=== PATIENT | female | born 1945 | race Caucasian/White ===

== ENCOUNTER 2016-07-15 18:18 | Observation (INO) | payer OTHER ==
--- NOTE | ~2016-07-15 | HP ---
History And Physical [place] [address] [place]. [address] NAME: BHAVIN HURT] : 47 STATUS : ADM Antolin PAT#: [id number] AGE: 70 ADM/REG DATE : 07/15/16 MR#: [id number] REPORT SERV DATE: 07/16/16 DICTATED BY: LUDIVINA BRAGA DATE: 07/16/16 REPORT STATUS : Draft TRANSCRIBED BY: MODL DATE: 07/16/16 DATE OF ADMISSION: 07/15/2016 COLOR CONSULTANT: Sammy Onofre M.D. CHIEF COMPLAINT: Chest pressure similar to previous. HISTORY OF PRESENT ILLNESS: Very pleasant, 70-year-old, white female with known history of CAD, status post reported TN in 2007 with two VIKAS to mid RCA at that time by Dr. Cecilio Hernandes. 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 The patient states that she was sitting, talking to a friend, 07/15/2016 around 1430 hours and developed some right-sided chest discomfort above her right breast that radiated to her mid chest and her jaw. She describes it as a pressure, states it is somewhat similar to her event in 2008. She denies any shortness of breath, nausea, diaphoresis, dizziness, or belching. At its most intense, her chest pain is rated an 8/10. At time of interview in the OU, she is pain free. She states the episode lasted approximately 30 minutes in duration. There was no exertional component described. She denies any argumentative stressful or confrontational events as well. The patient confirms personal history of one heart attack in 2007, also describes history of right lower extremity DVT and probable PE, now on Eliquis 2.5 twice daily. Denies history of stroke. The patient recently and currently being treated for an upper respiratory infection. Denies palpitations. No syncopal episodes. Denies PND or orthopnea. PAST MEDICAL HISTORY: 1. CAD. a. Self reports [place] x1. b. Two VIKAS to mid RCA with PTCA 06/2007 with subsequent catheterization 01/2008 revealing a patent stent to the RCA with 20% lesion in the left main, proximal LAD, and mid circumflex. 2. History of PE and DVT, on Eliquis 2.5 twice daily. 3. Hypertension. 4. Dyslipidemia. 5. Denies diabetes. 6. RLS. 7. Depression. 8. Positive family history for early CAD. 9. Former tobacco abuse. SURGICAL HISTORY: 1. Cataract surgery. 2. Right foot repair. 3. Right wrist surgery. 4. Hysterectomy. 5. Tonsillectomy. History And Physical [address] [address] NAME: BHAVIN HURT] : 47 STATUS : ADM Antolin PAT#: [id number] AGE: 70 ADM/REG DATE : 07/15/16 MR#: [id number] REPORT SERV DATE: 07/16/16 DICTATED BY: LUDIVINA BRAGA DATE: 07/16/16 REPORT STATUS : Draft TRANSCRIBED BY: JORDON DATE: 07/16/16 SOCIAL HISTORY: She is with three children. Retired from multiple occupations. Does not have an exercise routine. Quit smoking in 2003. Denies alcohol or illicit's. FAMILY HISTORY: Father's medical history unknown. Mother at the age of 72 of a pulmonary embolus. Sister with heart disease, specifics unknown. Brother of a heart attack in his 40s, but had used alcohol and drugs. REVIEW OF SYSTEMS: A 14-point review of systems performed, significant for HPI including snores per report with no formal sleep study. Otherwise, complete review of systems obtained and negative. ALLERGIES: PENICILLIN, NAUSEA, VOMITING. HOME MEDICATIONS: Albuterol twice daily p.r.n.; Eliquis 2.5 mg twice daily; aspirin 81 mg daily; atorvastatin 40 mg daily; baclofen 10 mg twice daily; doxycycline 100 mg twice daily for 10 days; Prozac 40 mg daily; Flonase spray p.r.n.; gabapentin 100 mg twice daily; metoprolol tartrate 25 mg twice daily; Ditropan 5 mg daily; Mirapex 0.25 mg twice daily; cough syrup p.r.n.; stool softener p.r.n. PHYSICAL EXAMINATION: VITAL SIGNS: Blood pressure 118/58, pulse 60, respirations 16, temperature 98.3, O2 saturation 92% on room air, height 5 feet 7 inches, weight 230 pounds, BMI 36. GENERAL: Cooperative, in no apparent distress. HEENT: Pupils 2 mm, sclera nonicteric. Nares patent. Moist mucous membranes. No xanthelasma. NECK: Trachea midline, no thyromegaly. No JVD. No bruits. LYMPH: No cervical lymphadenopathy. No supraclavicular lymphadenopathy. RESPIRATORY: Unlabored respirations. Breath sounds clear bilaterally to posterior auscultation. No wheezes or rhonchi. CARDIOVASCULAR: Regular rate. No murmur, rub or gallop appreciated. Extremities without edema. Pulses 2+ bilaterally. ABDOMEN: Obese, soft, nontender, nondistended, normal bowel sounds auscultated throughout. No organomegaly. SKIN: Warm, dry extremities. No pallor, or cyanosis. PSYCHIATRIC: Appropriate affect. Alert, oriented x3. LABORATORY DATA: Troponin less than 0.02 x3. Potassium 3.9, BUN 11, creatinine 0.90, glucose 95, magnesium 2.1. BNP 193.3. WBC 7.1, hemoglobin 14.3, hematocrit 42.0, platelet count 294,000. D-dimer 0.31. EKG, sinus bradycardia. Echo, 09/2012: EF 60% to 65%. MPI, 2014: Lul stage 2, no ischemia. Suboptimal increase in heart rate. ASSESSMENT AND PLAN: 1. Chest pain in patient with multiple risk factors. The patient has been observed in the CPOU overnight to rule out myocardial infarction with serial enzymes and serial EKGs History And Physical [address] [address] NAME: BHAVIN HURT] : 47 STATUS : ADM Antolin PAT#: [id number] AGE: 70 ADM/REG DATE : 07/15/16 MR#: [id number] REPORT SERV DATE: 07/16/16 DICTATED BY: LUDIVINA BRAGA DATE: 07/16/16 REPORT STATUS : Draft TRANSCRIBED BY: MODL DATE: 07/16/16 and held n.p.o. We will proceed with MPI today. The patient will be discharged home if low risk, no ischemia. If anything suggestive of ischemia, Cardiology referral will be initiated. Otherwise, the patient will be asked to follow up with her PCP and Dr. Onofre as appropriate. 2. Coronary artery disease. Continue home medications. 3. Hypertension. Monitor blood pressure and continue home medications. 4. Dyslipidemia. Continue statin. 5. History of pulmonary embolism and deep vein thrombosis. Currently on Eliquis 2.5 twice daily. Would recommend increasing Eliquis to 5 mg twice daily for appropriate coverage. The patient denies any history of GI bleed or complications on Eliquis. Prescription will be provided at discharge. 6. No nitroglycerin available. We will provide nitroglycerin 0.4 mg sublingual p.r.n. at discharge. Education and use in storage discussed with patient at bedside. REINA/JORDON Ludivina Braga, MSN, TRUCK DRIVER SUPERVISOR- / [id number] CC: MIAH Ridley M.D. Gordon Graham, M.D.
--- NOTE | ~2016-07-15 | DS ---
Discharge Summary [facility] [address] [place]. [address] NAME: BHAVIN HURT : 47 STATUS : DIS Antolin PAT#: [id number] AGE: 70 ADM/REG DATE : 07/15/16 MR#: [id number] REPORT SERV DATE: 07/29/16 DICTATED BY: EMPERATRIZ GAYTAN DATE: 07/29/16 REPORT STATUS : Draft TRANSCRIBED BY: MODQuita DATE: 07/29/16 ADMISSION DATE: 07/15/2016 DISCHARGE DATE: 07/18/2016 DISCHARGE DIAGNOSES: Included: 1. Chest pain, status post abnormal nuclear stress test. 2. Coronary artery disease. 3. Hypertension. 4. Hyperlipidemia. 5. History of pulmonary embolism and deep venous thrombosis. 6. Depression. 7. Restless legs syndrome. CONSULTANTS: None. PROCEDURES: 1. Nuclear stress test on 07/16/2016 indicating overall intermediate risk secondary to imaging demonstrating possible anterior ischemia. Post infusion LVEF 54%. 2. Cardiac catheterization on 07/18/2016 with PCI. 90% stenosis of the proximal right coronary artery, in-stent restenosis, reduced to 0% using one drug-eluting stent 3.5 x 20 [employer] PROMUS Premier. Other coronary arteries with moderate calcifications. Minor irregularities in the LAD, left circumflex and normal left main. This was performed by Dr. Andrés Velez. IMAGING: Include a chest x-ray on 07/15/2016 showing mild bibasilar atelectasis with no acute cardiopulmonary abnormalities identified. LABS: On day of discharge, sodium 141, potassium 4.0, BUN 12, creatinine 0.9. White blood count 6.8, hemoglobin 14.6, hematocrit 43.5. Troponin during admission was less than 0.02 x3. BRIEF HOSPITAL COURSE: This is a 70-year-old female with prior history of coronary artery disease and two prior stents to the RCA with self-reported MT, who presented to our chest pain observation unit on the day of admission with complaints of chest pain. Please see history of present illness on the H and P for further details. The patient's troponins were normal and she was set up for a nuclear stress test to occur on the . This did show some abnormalities as indicated above. The patient was kept over the weekend for cardiac catheterization to occur on Monday. She was placed on a heparin drip when her Eliquis was discontinued given her history of DVT and PE. This was discontinued when she went for cardiac catheterization. The patient went for cardiac catheterization early Monday morning and received a drug-eluting stent as indicated above and met same-day discharge criteria and was discharged later that day. I saw her prior to discharge around 11 o'clock in the morning and she had no complaints. Radial band was in place with no evidence of bleeding or hematoma. I instructed her on the p.r.n. use of nitroglycerin for recurrent chest pain and to come to the emergency department for any chest pain, unresolved after three doses. I also reviewed with her activity restrictions following catheterization which was also Discharge Summary [address] [place]. [address] NAME: BHAVIN HURT : 47 STATUS : DIS Antolin PAT#: [id number] AGE: 70 ADM/REG DATE : 07/15/16 MR#: [id number] REPORT SERV DATE: 07/29/16 DICTATED BY: EMPERATRIZ GAYTAN DATE: 07/29/16 REPORT STATUS : Draft TRANSCRIBED BY: JORDON DATE: 07/29/16 reviewed by the nursing staff. The patient will be on aspirin, Plavix, and Eliquis for 30 days given her history of DVT and PE as well as new stent. I discussed with Dr. Velez, and instructed the patient that we will stop aspirin after one months' time and then continue only on Plavix and Eliquis. She voiced understanding. DISPOSITION: Discharged home with family member. DISCHARGE MEDICATIONS: Please see discharge MAR. ACTIVITY: Post radial catheterization activity restrictions. DIET: Cardiac diet. FOLLOWUP: Follow up in three-four weeks with Dr. Sammy Onofre who is her milk runner. JUNI/JORDON Emperatriz Gaytan NP / [id number] CC: MIAH Ridley M.D. Gordon Graham, M.D.
[2016-07-15 16:18] LABS: BASOPHILS 0.6 %; BASOPHILS ABSOLUTE 0.04 10/3/uL (0.0-0.16); EOSINOPHILS 3.1 %; EOSINOPHILS ABSOLUTE 0.22 10/3/uL (0.0-0.53); ER CBC TAT 0 Hrs 03 Mins; HEMOGLOBIN 14.3 g/dL (12.0-16.0); IMMATURE GRANULOCYTES 0.6 %; IMMATURE GRANULOCYTES ABSOLUTE 0.04 10/3/uL (0.0-0.11); LYMPHOCYTES 28.5 %; LYMPHOCYTES ABSOLUTE 2.03 10/3/uL (0.67-4.30); MEAN CORPUSCULAR HEMOGLOB 29.9 pg (26.0-34.0); MEAN CORPUSCULAR VOLUME 87.9 fL (80-100); MONOCYTES 10.5 %; MONOCYTES ABSOLUTE 0.75 10/3/uL (0.21-1.20); NEUTROPHILS 56.7 %; NEUTROPHILS ABSOLUTE 4.04 10/3/uL (2.02-8.40); PLATELET COUNT 294 10/3/uL (150-400); RBC DISTRIBUTION WIDTH 13.1 % (12.0-16.0); RED CELL COUNT 4.78 10/6/uL (4.0-5.6); WHITE BLOOD CELLS 7.1 10/3/uL (4.5-10.5)
[2016-07-15 16:19] LABS: MANUAL DIFF NO %
[2016-07-15 16:26] LABS: INTERNATIONAL NORMAL RATI 1.2 UNITS (-); PROTIME (NOT ORD) 15.2 SEC (12.0-14.5)
[2016-07-15 16:27] LABS: PARTIAL THROMBO TIME 31.3 SEC (22.5-37.2)
[2016-07-15 16:37] LABS: BUN (BLOOD UREA NITROGEN) 11 MG/DL (6-23); CALCIUM, SERUM 8.8 MG/DL (8.5-10.4); CHEST PAIN PROFILE TAT 0 Hrs 22 Mins; CHLORIDE, SERUM 107 MMOL/L (96-112); CO2 (CARBON DIOXIDE) 30 MMOL/L (24-34); GFR AFRICAN AMERICAN 76 ML/MIN (>=60); GFR NON AFRICAN AMERICAN 65 ML/MIN (>=60); GLUCOSE, SERUM 95 MG/DL (60-99); POTASSIUM, SERUM 3.9 MMOL/L (3.5-5.3); SODIUM, SERUM 143 MMOL/L (135-148); TROPONIN I <0.02 NG/ML (<0.05)
[2016-07-15 18:04] LABS: D-DIMER QUANTITATIVE 0.31 ug/mLFEU (< 0.50)
[~2016-07-15 18:18] MED LIST: ASAB PO; CALTRA600D PO; CELEXA40 MG PO; COUGH SYRUP OTC PO; COUMADIN3 MG PO; DITRO5 PO; DSS PO; ELIQUIS 5 MG TAB5 MG PO; FLAG500TAB PO; FLEX PO; FLONASE NAS; FLORASTOR250 MG PO; LEVAQUIN750 MG PO; LIOR10 PO; LIPITOR40 PO; LOP25 PO; LOVENOX; MIRAPEX250 PO; MIRAPEX5 PO; MONODOX100 MG PO; MULTI-VIT HP OR; NEUR100 PO; NORCO1 TA1 PO; PCET PO; PRAVAC PO; PROAIR HFA INH; PROZAC40 MG PO; SINGULAIR1 PO; STOOL SOFTEN100 MG PO; STOOL SOFTENER OTC PO; T PO; VITAMIN B-121000 MC1 SL; VITAMIN B-122500 MCG SL; XARELTO20 MG PO; ZYRTEC ALLGY10 MG PO; [UNRECOGNIZED DRUG - REMARK]
[2016-07-18 04:55] LABS: BASOPHILS 0.4 %; BASOPHILS ABSOLUTE 0.03 10/3/uL (0.0-0.16); EOSINOPHILS 3.4 %; EOSINOPHILS ABSOLUTE 0.23 10/3/uL (0.0-0.53); HEMATOCRIT 43.5 % (36.0-48.0); HEMOGLOBIN 14.6 g/dL (12.0-16.0); IMMATURE GRANULOCYTES 0.4 %; IMMATURE GRANULOCYTES ABSOLUTE 0.03 10/3/uL (0.0-0.11); LYMPHOCYTES 35.9 %; LYMPHOCYTES ABSOLUTE 2.43 10/3/uL (0.67-4.30); MEAN CORPUS HGB CONC 33.6 g/dL (32.0-36.0); MEAN CORPUSCULAR HEMOGLOB 29.9 pg (26.0-34.0); MEAN CORPUSCULAR VOLUME 89.1 fL (80-100); MEAN PLATELET VOLUME 10.3 fL (9.2-13.0); MONOCYTES 9.7 %; MONOCYTES ABSOLUTE 0.66 10/3/uL (0.21-1.20); NEUTROPHILS 50.2 %; NEUTROPHILS ABSOLUTE 3.39 10/3/uL (2.02-8.40); PLATELET COUNT 284 10/3/uL (150-400); RBC DISTRIBUTION WIDTH 13.4 % (12.0-16.0); RED CELL COUNT 4.88 10/6/uL (4.0-5.6); WHITE BLOOD CELLS 6.8 10/3/uL (4.5-10.5)
[2016-07-18 05:02] LABS: INTERNATIONAL NORMAL RATI 1.1 UNITS (-)
[2016-07-18 05:10] LABS: PARTIAL THROMBO TIME 144.9 SEC (22.5-37.2)
[2016-07-18 05:18] LABS: ALBUMIN 3.6 G/DL (3.5-5.0); BUN (BLOOD UREA NITROGEN) 12 MG/DL (6-23); CALCIUM, SERUM 8.7 MG/DL (8.5-10.4); CHLORIDE, SERUM 105 MMOL/L (96-112); CO2 (CARBON DIOXIDE) 28 MMOL/L (24-34); CREATININE 0.91 MG/DL (0.55-1.02); GFR AFRICAN AMERICAN 75 ML/MIN (>=60); GFR NON AFRICAN AMERICAN 64 ML/MIN (>=60); HDL CHOLESTEROL 66 MG/DL (> 49); SGOT(AST) 13 U/L (5-40); SGPT(ALT) 17 U/L (5-65); SODIUM, SERUM 141 MMOL/L (135-148); TOTAL BILIRUBIN 0.4 MG/DL (0-1.2); TRIGLYCERIDE 119 MG/DL (< 150)
[2016-07-18 05:19] LABS: A/G RATIO 0.9 (0.7-1.9); ALKALINE PHOSPHATASE 108 U/L (45-117); CHOL/HDL RATIO(NOT ORDER) 2.6 (0-5); CHOLESTEROL 173 MG/DL (< 200); GLOBULIN 3.8 G/DL (2.5-4.1); GLUCOSE, SERUM 117 MG/DL (60-99); LDL CHOLESTEROL 84 MG/DL (< 130); NON-HDL CHOLESTEROL 107 MG/DL (< 160); TOTAL PROTEIN 7.4 G/DL (6.0-8.5)
[2016-07-18 05:22] LABS: MANUAL DIFF NO %
[2016-07-18] MEDS ORDERED: IMDUR30 PO (16:06)
[2016-07-18] MEDS ORDERED: PLAVIX PO (16:07)
[2016-07-18] MEDS ORDERED: NITROSTAT0.4 MG SL (16:07)
== END 2016-07-18 17:19 | disposition home or self-care (01) ==
LOC: ER 18:18 → CDU1 20:59 → CDU2 21:08 → SSU1 07-18 10:05
PROVIDERS: Clinical Nurse Specialist; Emergency Medicine; Nurse Practitioner
DX: I25.110 Atherosclerotic heart disease of native coronary artery with unstable angina pectoris (principal); I10 Essential (primary) hypertension; E78.5 Hyperlipidemia, unspecified; G25.81 Restless legs syndrome; F32.9 Major depressive disorder, single episode, unspecified; Z82.49 Family history of ischemic heart disease and other diseases of the circulatory system; Z87.891 Personal history of nicotine dependence; Z90.710 Acquired absence of both cervix and uterus; Z98.890 Other specified postprocedural states; Z86.711 Personal history of pulmonary embolism; Z86.718 Personal history of other venous thrombosis and embolism; Z90.89 Acquired absence of other organs; Z88.0 Allergy status to penicillin; Z79.82 Long term (current) use of aspirin; Z79.2 Long term (current) use of antibiotics; Z79.899 Other long term (current) drug therapy
CPT/HCPCS: 71020; 78452; 80048; 80053; 80061; 83735; 83880; 84484; 85025; 85347; 85379; 85610; 85730; 93005; 93017; 93458; 96372; 99152; 99153; 99285; A9270-GY; A9502; C1725; C1769; C1874; C1887; C1894; C9600; G0378; J0153; J2250; J3010; Q9967

== ENCOUNTER 2016-08-08 04:52 | Observation (INO) | payer OTHER ==
--- NOTE | ~2016-08-08 | HP ---
History And Physical [place] [id number] [place]. [address] NAME: BHAVIN HURT : 47 STATUS : ADM Antolin PAT#: [id number] AGE: 70 ADM/REG DATE : 08/08/16 MR#: [id number] REPORT SERV DATE: 08/08/16 DICTATED BY: EMPERATRIZ GAYTAN DATE: 08/08/16 REPORT STATUS : Draft TRANSCRIBED BY: MODL DATE: 08/08/16 DATE OF ADMISSION: 08/08/2016 PRIMARY INDUSTRIAL SAFETY ENGINEER: Dr. Sammy Onofre. CHIEF COMPLAINT: Chest pain. HISTORY OF PRESENT ILLNESS: This is a 70-year-old female who was just discharged on 07/18/2016 following an abnormal nuclear stress test with placement of a drug-eluting stent to an intrastent restenosis in the right coronary artery on 07/18/2016. She had been doing fairly well at home, although she does report more fatigue and weakness since her stent. She saw her primary care physician who decreased her metoprolol when her recorded heart rate showed a heart rate in the 40s to 50s along with the complaints of fatigue and weakness. Last night around 11:30, she developed some fairly significant right-sided chest pain with radiation to the left side of her chest and up to both sides of her neck, rated 8/10 in severity and occurring at rest. She took one nitroglycerin at home, which seemed to help a little, but because the pain was stronger than her prior chest pain in June, she came to our emergency department for further evaluation. She was given full-dose aspirin and admitted to our chest pain observation unit. Troponins have been negative and EKG showed no indication of ischemia. The patient states some residual "pressure" in the chest that has not fully dissipated. The patient states compliance with all of her medications. She is currently on triple anticoagulation given her history of pulmonary embolism and DVT. Denies any increase in lower extremity edema. Denies any recent PND, orthopnea, or significant shortness of breath. She denies any bloody or dark-colored stools. She states compliance with her medications. She does report occasional palpitations occurring less frequently than once a week, described as heart racing with some mild dizziness. No recent fever, cough, or chills. MEDICAL HISTORY: 1. Coronary artery disease status post drug-eluting stent to an intrastent restenosis in the proximal RCA on 07/18/2016. This is a 3.5 x 20 [employer] PROMUS drug- eluting stent. There are minor irregularities in the LAD and left circumflex. Prior RCA stents in 2007. 2. History of PE and DVT, on chronic anticoagulation with Eliquis. 3. Hypertension. 4. Dyslipidemia. 5. Restless legs syndrome. 6. Depression. SURGICAL HISTORY: 1. Cataract surgery. 2. Right foot repair. 3. Right wrist surgery. 4. Hysterectomy. History And Physical [address] [address] NAME: BHAVIN HURT : 46 STATUS : ADM Antolin PAT#: [id number] AGE: 70 ADM/REG DATE : 08/08/16 MR#: [id number] REPORT SERV DATE: 08/08/16 DICTATED BY: EMPERATRIZ GAYTAN DATE: 08/08/16 REPORT STATUS : Draft TRANSCRIBED BY: JORDON DATE: 08/08/16 5. Tonsillectomy. SOCIAL HISTORY: The patient is a with three children, daughter at bedside. Retired from multiple occupations. Quit smoking in 2003. Denies alcohol or illicit drug use. FAMILY HISTORY: Father's medical history is unknown. Mother at age 72 of pulmonary embolus. Sister with heart disease, specifics unknown. Brother of a heart attack in his 40s. REVIEW OF SYSTEMS: Negative except as indicated above. PHYSICAL EXAMINATION: VITAL SIGNS: Blood pressure 128/62, heart rate 50s to 60s, temperature 98.1, pulse oximetry 96% room air. BMI 35.7. GENERAL: Well developed, well nourished, in no acute distress HEENT: Anicteric. Normal EOM. Head normocephalic. PERRLA, no xanthelasma. NECK: Supple. No JVD. Carotids normal without bruits. LUNGS: Clear to auscultation bilaterally anterior and posterior. Respirations even and unlabored. CARDIAC: S1, S2 regular rate and rhythm. No murmurs, rubs, or gallops. No chest wall tenderness. ABDOMEN: Normal bowel sounds. Soft and nontender to palpation. No masses or organomegaly. EXTREMITIES: 1+ edema to the bilateral lower extremities. Normal distal pulses. No calf tenderness. No cyanosis or clubbing. SKIN: Warm and dry. Normal turgor. No pallor or cyanosis. MUSCULOSKELETAL: Moving all extremities x4. Normal muscle strength. NEURO/PSYCH: Alert and oriented with appropriate affect. LABORATORY DATA: White blood count 9.5, hemoglobin 14.3, hematocrit 43.1. Sodium 142, potassium 4.0, BUN 20, creatinine 1.1. Troponin less than 0.02 x2. IMAGING: Chest x-ray shows no acute cardiopulmonary processes. EKGs interpreted by myself indicate sinus bradycardia and normal sinus rhythm with no ischemic changes. ASSESSMENT AND PLAN: 1. Atypical chest pain in this 70-year-old female with history of coronary artery disease and recent RCA stent on 07/18/2016. The patient has been observed overnight in the chest pain observation unit and is negative for acute coronary syndrome. The patient has also been seen by Dr. Du. There is no evidence of any acute intrastent restenosis at this time on blood work or EKG. I have reinforced with the patient and her daughter the p.r.n. use of nitroglycerin for chest pain to take up to 3 or 5 minutes apart. If this does not relieve her chest pain, she is to report to the emergency department. The patient states understanding. At this time, we will increase her medical management by increasing her Imdur and arrange followup which is already in place with Dr. Onofre on 08/30/2016. I have also instructed the patient and her daughter that if the patient has any exertional chest pains that are not relieved History And Physical [address] [address] NAME: BHAVIN HURT : 47 STATUS : ADM Antolin PAT#: [id number] AGE: 70 ADM/REG DATE : 08/08/16 MR#: [id number] REPORT SERV DATE: 08/08/16 DICTATED BY: EMPERATRIZ GAYTAN DATE: 08/08/16 REPORT STATUS : Draft TRANSCRIBED BY: JORDON DATE: 08/08/16 with nitroglycerin and/or rest, they are to contact her physician. 2. Coronary artery disease with recent stent. Plan as above. The patient is currently on triple anticoagulation given her history of pulmonary embolism and deep vein thrombosis. She is to stop her aspirin on 08/17/2016 and then to continue her Plavix and Eliquis. 3. History of pulmonary embolism and deep vein thrombosis with no evidence of deep vein thrombosis on exam nor any shortness of breath acutely. The patient is compliant with Eliquis therapy. 4. Hypertension. Blood pressure is controlled. She takes her blood pressure once daily and records it and I have reviewed these logs and they seem to be adequate. Recent adjustment in her beta-ajith by her primary care physician. I agree with this. 5. Mixed hyperlipidemia, on high-intensity statin therapy. Will continue. DBT/MODL Emperatriz Gaytan NP / [id number] CC: Ludivina Garcia, MSN, PUMPING PLANT OPERATOR-BC Gabby Hamlin M.D. Sammy Onofre M.D.
[2016-08-08 01:24] LABS: BASOPHILS 0.4 %; BASOPHILS ABSOLUTE 0.04 10/3/uL (0.0-0.16); EOSINOPHILS 1.9 %; EOSINOPHILS ABSOLUTE 0.18 10/3/uL (0.0-0.53); HEMATOCRIT 43.1 % (36.0-48.0); HEMOGLOBIN 14.3 g/dL (12.0-16.0); IMMATURE GRANULOCYTES 0.6 %; IMMATURE GRANULOCYTES ABSOLUTE 0.06 10/3/uL (0.0-0.11); LYMPHOCYTES 28.8 %; LYMPHOCYTES ABSOLUTE 2.73 10/3/uL (0.67-4.30); MEAN CORPUS HGB CONC 33.2 g/dL (32.0-36.0); MEAN CORPUSCULAR HEMOGLOB 29.7 pg (26.0-34.0); MEAN CORPUSCULAR VOLUME 89.4 fL (80-100); MEAN PLATELET VOLUME 10.2 fL (9.2-13.0); MONOCYTES 11.6 %; NEUTROPHILS 56.7 %; NEUTROPHILS ABSOLUTE 5.37 10/3/uL (2.02-8.40); PLATELET COUNT 267 10/3/uL (150-400); RBC DISTRIBUTION WIDTH 13.9 % (12.0-16.0); RED CELL COUNT 4.82 10/6/uL (4.0-5.6); WHITE BLOOD CELLS 9.5 10/3/uL (4.5-10.5)
[2016-08-08 01:28] LABS: ER CBC TAT 0 Hrs 05 Mins; MANUAL DIFF NO %
[2016-08-08 01:47] LABS: CALCIUM, SERUM 9.3 MG/DL (8.5-10.4); CHEST PAIN PROFILE TAT 0 Hrs 28 Mins; CHLORIDE, SERUM 109 MMOL/L (96-112); CO2 (CARBON DIOXIDE) 28 MMOL/L (24-34); CREATININE 1.13 MG/DL (0.55-1.02); GFR AFRICAN AMERICAN 57 ML/MIN (>=60); GFR NON AFRICAN AMERICAN 50 ML/MIN (>=60); GLUCOSE, SERUM 98 MG/DL (60-99); SODIUM, SERUM 142 MMOL/L (135-148); TROPONIN I <0.02 NG/ML (<0.05)
[2016-08-08 01:49] LABS: BUN (BLOOD UREA NITROGEN) 20 MG/DL (6-23)
[2016-08-08 01:54] LABS: INTERNATIONAL NORMAL RATI 1.2 UNITS (-); PARTIAL THROMBO TIME 28.1 SEC (22.5-37.2); PROTIME (NOT ORD) 14.9 SEC (12.0-14.5)
[~2016-08-08 04:52] MED LIST changes: +IMDUR30 PO; +NITROSTAT0.4 MG SL; +PLAVIX PO
[2016-08-08] MEDS ORDERED: VENTOLIN HFA (06:08)
[2016-08-08] MEDS ORDERED: ASAB PO (06:09)
[2016-08-08] MEDS ORDERED: ELIQUIS 5 MG TAB5 MG PO (06:09)
[2016-08-08] MEDS ORDERED: LIPITOR40 PO (06:09)
[2016-08-08] MEDS ORDERED: LIOR10 PO (06:10)
[2016-08-08] MEDS ORDERED: PLAVIX PO (06:10)
[2016-08-08] MEDS ORDERED: PROZAC40 MG PO (06:11)
[2016-08-08] MEDS ORDERED: NEUR100 PO (06:12)
[2016-08-08] MEDS ORDERED: FLONASE (06:12)
[2016-08-08] MEDS ORDERED: IMDUR30 PO (06:13)
[2016-08-08] MEDS ORDERED: DITRO5 (06:14)
[2016-08-08] MEDS ORDERED: NITROQUICK0.4 MG SL (06:14)
[2016-08-08] MEDS ORDERED: LOP25 PO (06:14)
[2016-08-08] MEDS ORDERED: MIRAPEX250 PO (06:15)
[2016-08-08] MEDS ORDERED: DITRO5 PO (06:15)
[2016-08-08] MEDS ORDERED: IMDUR60 PO (13:03)
== END 2016-08-08 13:43 | disposition home or self-care (01) ==
LOC: ER 04:52 → CDU1 05:00
PROVIDERS: Specialist
DX: R07.89 Other chest pain (principal); I25.10 Atherosclerotic heart disease of native coronary artery without angina pectoris; E78.2 Mixed hyperlipidemia; I10 Essential (primary) hypertension; F32.9 Major depressive disorder, single episode, unspecified; G25.81 Restless legs syndrome; F41.9 Anxiety disorder, unspecified; M19.90 Unspecified osteoarthritis, unspecified site; Z90.710 Acquired absence of both cervix and uterus; Z98.890 Other specified postprocedural states; Z86.718 Personal history of other venous thrombosis and embolism; Z87.891 Personal history of nicotine dependence; Z79.02 Long term (current) use of antithrombotics/antiplatelets; Z79.899 Other long term (current) drug therapy; Z88.0 Allergy status to penicillin
CPT/HCPCS: 71020; 80048; 83735; 84484; 85025; 85610; 85730; 93005; 99285; A9270-GY; G0378